=== PATIENT | female | born 2005 | race Two or more races ===

== ENCOUNTER 2025-03-04 22:53 | Emergency (ER) | payer OTHER ==
[~2025-03-04] VITALS: Ht 157.5 cm; Wt 61.7 kg
[2025-03-05] MEDS ORDERED: ONDANSETRON HCL 2 MG/ML VIAL IV STA (00:37)
[2025-03-05] MEDS ORDERED: FAMOTIDINE/PF 20 MG/2 ML VIAL IV PUSH STA (00:38)
[2025-03-05] MEDS ORDERED: 0.9 % SODIUM CHLORIDE 1,000 ML IV ONE (00:45)
[2025-03-05 01:36] LABS: BASO % 0.2 % (0.1-1.2); EOS # 0.03 (0.04-0.54); EOS % 0.2 % (0.7-7.0); LYMPH # 0.64 (1.18-3.74); LYMPH % 4.1 % (19.3-53.1); MEAN PLATELET VOLUME 10.40 fl (9.4-12.4); MONO # 0.54 (0.24-0.82); MONO % 3.4 % (4.7-12.5); NEUT # 14.43 (1.56-6.13); NEUT % 91.8 % (34.0-71.1); RED CELL DISTRIBUTION WIDTH 12.7 % (11.6-14.4)
[2025-03-05 01:43] LABS: URINE APPEARANCE Clear; URINE BILIRRUBIN Negative (NEGATIVE); URINE BLOOD Moderate; URINE COLOR Yellow; URINE GLUCOSE Negative (NEGATIVE); URINE LEUKOCYTE Moderate; URINE NITRATE Negative; URINE PROTEIN Trace (NEGATIVE); URINE UROBILINOGEN 1.0 E.U./dl
[2025-03-05 01:46] LABS: URINE BACTERIA 2057.8 uL (0.0-1933); URINE EPITHELIAL CELLS 76.9 uL (0.0-38.8); URINE RBC 6.0 uL (0.0-20.8); URINE WBC 83.5 uL (0.0-23.2)
[2025-03-05 02:03] LABS: ALT/SGPT 41 U/L (12-78); AST/SGOT 28 U/L (15-37); BILIRUBIN TOTAL 0.64 mg/dL (0.3-1.2); BUN CREA RATIO 30 (7.0-25.0); CREATININE SERUM 0.61 mg/dL (0.55-1.02); GFR 123.81; GLOBULINA 3.5 G/DL (2.4-3.5); GLUCOSE FASTING 93 mg/dL (65-100); OSMOLALITY SERUM 283 MOSM/KG (275-295)
[2025-03-05 02:04] LABS: HCG QUANTITATIVE < 1 mUI/mL (1-3)
[2025-03-05 02:04] LABS: URINE CAST 0.73 uL (0.0-1.40); URINE KETONE 40 (NEGATIVE)
[2025-03-05] MEDS ORDERED: PEPCID40 MG PO (03:25)
[2025-03-05] MEDS ORDERED: ZOFRAN8 MG PO (03:25)
== END 2025-03-05 03:33 ==
LOC: ER 23:37
PROVIDERS: General Practice
DX: R11.10 Vomiting, unspecified (principal)